=== PATIENT | male | born 1950 ===

== ENCOUNTER 2018-04-23 15:42 | Emergency (ER) | payer MEDICARE, BC ==
[~2018-04-23] VITALS: Ht 185.4 cm; Wt 145.1 kg
--- NOTE | 2018-04-23 17:42 | NUR ---
PATIENT BEING SEEN BY PHYSICIAN. PATIENT CAME IN FOR RINGING IN THE EARS. RINGING IS SUBSIDING.
--- NOTE | 2018-04-23 17:46 | NUR ---
GIVEN ALL DISCHARGE PAPERWORK AND PRESCRIPTIONS
== END 2018-04-23 17:48 | disposition home or self-care (01) ==
LOC: ER 15:48
DX: H93.13 Tinnitus, bilateral (principal); L03.119 Cellulitis of unspecified part of limb; I48.91 Unspecified atrial fibrillation
CPT/HCPCS: A4663